=== PATIENT | female | born 1985 | race Caucasian/White ===

== ENCOUNTER 2023-06-26 14:53 | Observation (INO) ==
[2023-06-26] MEDS ORDERED: CATAPRES TAB 0.2 MG ONE (15:39)
[2023-06-26] MEDS: CATAPRES TAB 0.2 MG PO ONE (15:43)
--- NOTE | 2023-06-26 16:25 | RAD ---
EXAM: ABDOMEN X-RAY (or KUB)HISTORY: Nausea and vomiting.TECHNIQUE: Supine viewCOMPARISON: None.FINDINGS:The bowel gas pattern is nonspecific and nonobstructive. There is no gross organomegaly, free intraperitoneal air, or suspicious calcifications seen. There are multiple bilateral pelvic calcifications, left greater than right, consistent with phleboliths, but cannot rule out urolithiasis in the appropriate clinical setting. Clinical correlation is advised. The visualized bony structures are within normal limits.IMPRESSION:1. Nonspecific and nonobstructive bowel gas pattern.2. Multiple bilateral pelvic calcifications, left greater than right, consistent with phleboliths, but cannot rule out urolithiasis in the appropriate clinical setting. Clinical correlation is advised.3. Consider follow-up evaluation with CT if symptoms persist or worsen.THIS IS AN ELECTRONICALLY VERIFIED FINAL REPORT06/26/2023 4:22 PM - Electronically signed by Ellen Clinton
[2023-06-26 16:29] LABS: BASOPHILS # (AUTO) 0.1 X10^3/uL (0.0-0.1); BASOPHILS % (AUTO) 0.5 % (0.2-1.0); EOSINOPHILS % (AUTO) 0.1 % (0.9-2.9); HEMATOCRIT 40.5 % (36.0-47.0); HEMOGLOBIN 13.5 g/dL (12.0-16.0); LYMPHOCYTES % (AUTO) 12.1 % (21.0-51.0); MEAN CORPUSCULAR HEMOGLOBIN 29.8 pg (27.0-34.0); MEAN CORPUSCULAR HGB CONC 33.4 g/dL (33.0-35.0); MEAN PLATELET VOLUME 7.6 fL (7.4-11.0); MONOCYTES # (AUTO) 0.6 x10^3/uL (0.3-0.8); MONOCYTES % (AUTO) 3.5 % (0.0-13.0); NEUTROPHILS # (AUTO) 13.8 x10^3/uL (2.2-4.8); NEUTROPHILS % (AUTO) 83.8 % (42.0-75.0); PLATELET COUNT 369 X10^3/uL (150.0-450.0); RED BLOOD COUNT 4.55 X10^6/uL (3.5-5.4); RED CELL DISTRIBUTION WIDTH 13.7 % (11.6-16.5); WHITE BLOOD COUNT 16.4 X10^3/uL (3.6-10.0)
[2023-06-26 16:30] LABS: BILIRUBIN,URINE NEGATIVE (NEGATIVE); BLOOD/HEMOGLOBIN,URINE 1+ (NEGATIVE); GLUCOSE, URINE NEGATIVE (NEGATIVE); KETONES,URINE 3+ (NEGATIVE); LEUKOCYTE ESTERASE ,URINE NEGATIVE (NEGATIVE); NITRITES,URINE NEGATIVE (NEGATIVE); PROTEIN,URINE NEGATIVE (NEGATIVE); UROBILINOGEN,URINE NORMAL (NORMAL)
[2023-06-26 16:33] LABS: APPEARANCE,URINE CLEAR (CLEAR); COLOR,URINE YELLOW (YELLOW)
[2023-06-26 16:39] LABS: ALANINE AMINOTRANSFERASE 18 Units/L (12-78); ALBUMIN 3.7 g/dL (3.4-5.0); ALKALINE PHOSPHATASE 43 Units/L (46-116); ASPARTATE AMINO TRANSFERASE 10 Units/L (15-37); BLOOD UREA NITROGEN 8 mg/dL (7-18); CALCIUM 8.5 mg/dL (8.5-10.1); CARBON DIOXIDE 22.9 mmol/L (21-32); CHLORIDE 104 mmol/L (98-107); CREATININE 0.75 mg/dL (0.55-1.02); GLUCOSE 109 mg/dL (65-99); POTASSIUM 3.6 mmol/L (3.5-5.1); SODIUM 143 mmol/L (136-145); TOTAL PROTEIN 7.3 g/dL (6.4-8.2); eGFR NON BLACK RACES > 60 (>60)
[2023-06-26 16:42] LABS: BACTERIA,URINE NEGATIVE /HPF (NEGATIVE); SQUAMOUS EPITHELIAL CELL,UR FEW /HPF (NEGATIVE)
[2023-06-26] MEDS ORDERED: PHENERGAN INJ 25 MG IM ONE (17:08)
[2023-06-26] MEDS: PHENERGAN INJ 25 MG IM ONE (17:17)
[2023-06-26] MEDS: NS 100 ML IV 100 ML ONE (17:48)
[2023-06-26] MEDS: OMNIPAQUE 350 mg/mL 100 mL BTL 100 ML ONE (17:48)
--- NOTE | 2023-06-26 17:56 | CT ---
EXAM: CT ABDOMEN AND PELVIS WITH INTRAVENOUS CONTRAST HISTORY: Abdominal pain. Vomiting. TECHNIQUE: Spiral axial CT images are obtained through the abdomen and pelvis without the administrat ion of oral contrast and with the administration of intravenous contrast. Additional coronal and sagi ttal reformatted images are reconstructed. DOSIMETRY: Total DLP 389.65 mGycm; CTDI 7.82 mGy COMPARISON: None available. FINDINGS: GASTROINTESTINAL TRACT: Mild thickening of the visualized distal esophagus which may represent postin flammatory change or reflux esophagitis in the appropriate clinical setting. There is no evidence for bowel herniation, bowel obstruction, colitis or diverticulitis. A normal-jennifer earing appendix is seen. GENITOURINARY SYSTEM: The kidneys are unremarkable. There is no ureteral calculus or stigmata of obst ructive uropathy. The urinary bladder is grossly unremarkable for a non-dedicated exam. REPRODUCTIVE SYSTEM: There is an approximately 1.9 cm right ovarian cyst, presumed to represent a fun ctional cyst in this age category. Axial image 66; coronal image 47. Consider correlation with a fo llowup ultrasound for further characterization as clinically warranted. The uterus and left adnexa a ppear grossly unremarkable for a CT scan. BILIARY SYSTEM: Dilated gallbladder with questionable gallbladder wall thickening; nonspecific findin g which may represent sequela of NPO status. Consider follow-up evaluation with HIDA scan to rule out cystic duct obstruction and acute cholecystitis as clinically warranted. CT ABDOMEN: The liver, spleen, pancreas, adrenal glands, aorta, and inferior vena cava are within nor mal limits for a CT scan. There is no intra-abdominal or retroperitoneal lymphadenopathy, free fluid , or free air seen. No abdominal herniation is noted. CT PELVIS: No pelvic sidewall or inguinal lymphadenopathy is seen. No inguinal herniation is noted. No free fluid or free air is seen. BONES AND JOINTS: The visualized bony structures are within normal limits. LUNG BASES: The lung bases are clear. IMPRESSION: 1. Dilated gallbladder with questionable gallbladder wall thickening; nonspecific finding which may represent sequela of NPO status, but cannot rule out acute cholecystitis in the appropriate clinical setting. Axial image 22-30 consider follow-up evaluation with HIDA scan to rule out cystic duct obst ruction and acute cholecystitis as clinically warranted. 2. No evidence for pyelonephritis, renal stone disease or obstructive uropathy. 3. Mild thickening of the visualized distal esophagus which may represent postinflammatory change or reflux esophagitis in the appropriate clinical setting. 4. No evidence for acute appendicitis, bowel herniation/obstruction, colitis or diverticulitis seen. 5. Approximately 1.9 cm right ovarian cyst, presumed to represent a functional cyst in this age nicholas keen. Axial image 66; coronal image 47. Consider correlation with a followup ultrasound for further characterization as clinically warranted. 6. No free fluid, free air, mass lesions, or lymphadenopathy seen. THIS IS AN ELECTRONICALLY VERIFIED FINAL REPORT 06/26/2023 5:52 PM - Electronically signed by Ellen Clinton
--- NOTE | 2023-06-26 19:15 | DR.NAUSEAF ---
HPI Time Seen Time Seen by Provider: 06/26/23 16:00 Primary Care Physician Primary Care Physician: [facility] Complaints Chief Complaint:: Patient states that she started vomiting Tuesday06.24.2023 and thought that it was starting to get better. However this morning she woke up and was vomiting again and is unable to keep anything down. COVID-19 Coronavirus risk:travel/contact w/high risk person: No Has patient experienced Coronavirus symptoms: No Source History Provided: Patient Mode of Arrival Mode of Arrival: Ambulatory Timing Onset of Chief Complaint: 06/24/23 Context Onset: Spontaneous Recent: None : No Quality Quality: Bilious Associated Signs and Symptoms Abdominal Pain Quality: Cramping Abdominal Pain Location: Diffuse PMH PMH Past Medical History: No Past Medical History: Hypertension Past Surgical History: Yes Surgical History: and Other Past Surgical History Comment: D&C Family History History of Family Medical Conditions: Yes Family Medical History: Diabetes Mellitus, Cancer, [place], Coronary Artery Disease and Hypertension Social History Type of Tobacco Use: Cigarettes Do you use any recreational Drugs:: No Travel Risk Coronavirus risk:travel/contact w/high risk person: No Has patient experienced Coronavirus symptoms: No Infectious screening Have you traveled outside the country in the last 6 months?: No Isolation: Standard ROS Review of Systems Gastrointestinal/Abdominal: See HPI, Abdominal Pain and Nausea PE Vital Signs Vitals: Vital Signs Temperature 97.7 F Temperature 97.7 F Pulse Rate [Left Brachial] 73 Pulse Rate 74 Pulse Rate 71 Pulse Rate 70 Pulse Rate 73 Pulse Rate 70 Pulse Rate 91 Pulse Rate 74 Pulse Rate 71 Pulse Rate 70 Pulse Rate 73 Respiratory Rate 18 Respiratory Rate 18 Blood Pressure [Left Arm] 200/95 Blood Pressure 180/102 Blood Pressure 164/94 Blood Pressure 209/99 Blood Pressure 181/96 Blood Pressure 226/111 Blood Pressure 200/95 O2 Sat by Pulse Oximetry 98 O2 Sat by Pulse Oximetry 99 O2 Sat by Pulse Oximetry 98 O2 Sat by Pulse Oximetry 99 O2 Sat by Pulse Oximetry 99 O2 Sat by Pulse Oximetry 99 O2 Sat by Pulse Oximetry 100 O2 Sat by Pulse Oximetry 100 O2 Sat by Pulse Oximetry 98 O2 Sat by Pulse Oximetry 100 O2 Sat by Pulse Oximetry 99 O2 Sat by Pulse Oximetry 99 General Limitations: No Limitations General Appearance: Alert and In No Apparent Distress Head Head Exam: Normal Inspection, Atraumatic and Normocephalic Eyes Eye exam: Normal Appearance, PERRL and EOMI ENT ENT Exam: Normal Exam Neck Neck Exam: Normal Inspection Chest Chest Inspection: Normal Inspection Respiratory Respiratory Exam: Normal Lung Sounds Bilat Cardiovascular Cardiovascular Exam: Regular Rate Abdominal Exam Abdominal Exam: Normal Inspection, Normal Bowel Sounds and Soft Rectal Rectal Exam: Deferred (Patient declined rectal exam) Extremities Extremities Exam: Normal Inspection Back Back Exam: Normal Inspection Neurologic Neurological Exam: Alert, Oriented X3, CN II-XII Intact, Normal Gait and Reflexes Normal Psychiatric Psychiatric Exam: Normal Affect and Normal Mood Skin Skin Exam: Warm, Dry and Intact COURSE Treatment Treatment: Labs, CT, Phenergan, IV antibiotics Reevaluation 1st: Improved ROR Labs Reviewed Laboratory Results Reviewed?: Yes 06/26/23 16:21 06/26/23 16:21 Laboratory: WBC 16.4 X10^3/uL (3.6-10.0) H 06/26/23 16:21 RBC 4.55 X10^6/uL (3.5-5.4) 06/26/23 16:21 Hgb 13.5 g/dL (12.0-16.0) 06/26/23 16:21 Hct 40.5 % (36.0-47.0) 06/26/23 16:21 MCV 89.0 fL (80.0-100.0) 06/26/23 16:21 MCH 29.8 pg (27.0-34.0) 06/26/23 16:21 MCHC 33.4 g/dL (33.0-35.0) 06/26/23 16:21 RDW 13.7 % (11.6-16.5) 06/26/23 16:21 Plt Count 369 X10^3/uL (150.0-450.0) 06/26/23 16:21 MPV 7.6 fL (7.4-11.0) 06/26/23 16:21 Neut % (Auto) 83.8 % (42.0-75.0) H 06/26/23 16:21 Lymph % (Auto) 12.1 % (21.0-51.0) L 06/26/23 16:21 Power % (Auto) 3.5 % (0.0-13.0) 06/26/23 16:21 Eos % (Auto) 0.1 % (0.9-2.9) L 06/26/23 16:21 Baso % (Auto) 0.5 % (0.2-1.0) 06/26/23 16:21 Neut # (Auto) 13.8 x10^3/uL (2.2-4.8) H 06/26/23 16:21 Lymph # (Auto) 2.0 X10^3/uL (1.3-2.9) 06/26/23 16:21 Power # (Auto) 0.6 x10^3/uL (0.3-0.8) 06/26/23 16:21 Eos # (Auto) 0.0 x10^3/uL (0.0-0.2) 06/26/23 16:21 Baso # (Auto) 0.1 X10^3/uL (0.0-0.1) 06/26/23 16:21 Absolute Nucleated RBC 0.0 /100WBC 06/26/23 16:21 Sodium 143 mmol/L (136-145) 06/26/23 16:21 Corrected Sodium TNP 06/26/23 16:21 Potassium 3.6 mmol/L (3.5-5.1) 06/26/23 16:21 Chloride 104 mmol/L (98-107) 06/26/23 16:21 Carbon Dioxide 22.9 mmol/L (21-32) 06/26/23 16:21 BUN 8 mg/dL (7-18) 06/26/23 16:21 Creatinine 0.75 mg/dL (0.55-1.02) 06/26/23 16:21 Est GFR (MDRD) Af Amer > 60 (>60) 06/26/23 16:21 Est GFR (MDRD) Non-Af > 60 (>60) 06/26/23 16:21 Glucose 109 mg/dL (65-99) H 06/26/23 16:21 Calcium 8.5 mg/dL (8.5-10.1) 06/26/23 16:21 Corrected Calcium TNP 06/26/23 16:21 Total Bilirubin 0.40 mg/dL (0.2-1.0) 06/26/23 16:21 AST 10 Units/L (15-37) L 06/26/23 16:21 ALT 18 Units/L (12-78) 06/26/23 16:21 Alkaline Phosphatase 43 Units/L (46-116) L 06/26/23 16:21 Total Protein 7.3 g/dL (6.4-8.2) 06/26/23 16:21 Albumin 3.7 g/dL (3.4-5.0) 06/26/23 16: Globulin 3.6 g/dL (2.5-4.5) 06/26/23 16: Albumin/Globulin Ratio 1.0 Ratio (1.1-2.1) L 06/26/23 16:21 Specimen Type Clean catch urine 06/26/23 16: Urine Color Yellow (YELLOW) 06/26/23 16: Urine Appearance Clear (CLEAR) 06/26/23 16: Urine pH 8.0 (5.0 - 8.0) 06/26/23 16: Ur Specific [place] 1.015 (1.000-1.030) 06/26/23 16: Urine Protein Negative (NEGATIVE) 06/26/23 16: Urine Glucose (UA) Negative (NEGATIVE) 06/26/23 16: Urine Ketones 3+ (NEGATIVE) 06/26/23 16: Urine Blood 1+ (NEGATIVE) 06/26/23 16: Urine Nitrite Negative (NEGATIVE) 06/26/23 16: Urine Bilirubin Negative (NEGATIVE) 06/26/23 16: Urine Urobilinogen Normal (NORMAL) 06/26/23 16: Ur Leukocyte Esterase Negative (NEGATIVE) 06/26/23 16: Urine RBC 3-5 /HPF (0-3) A 06/26/23 16: Urine WBC 0-2 /HPF (0-5) 06/26/23 16: Ur Squamous Epith Cells Few /HPF (NEGATIVE) 06/26/23 16: Urine Bacteria Negative /HPF (NEGATIVE) 06/26/23 16: Ur Culture Indicated? No/not indicated 06/26/23 16: Urine Test Negative <10 mIU/mL 06/26/23 16: Urine Opiates Screen Negative (NEG=<300) 06/26/23 16: Urine Methadone Screen Negative (NEG=<300) 06/26/23 16: Ur Barbiturates Screen Negative (NEG=<200) 06/26/23 16:26 Ur Phencyclidine Scrn Negative (NEG=<25) 06/26/23 16:26 Ur Amphetamines Screen Negative (NEG=<1000) 06/26/23 16:26 U Benzodiazepines Scrn Negative (NEG=<200) 06/26/23 16:26 Urine Cocaine Screen Negative (NEG=<300) 06/26/23 16:26 U Marijuana (THC) Screen Positive (NEG=<50) A 06/26/23 16:26 XRAY XRAY Interpreted by: Radiologist Opioid Opioid Risk Tool Age (Wing box if 16-45): No History of Preadolescent Sexual Abuse: No Total: 0 Total Score Risk Category: Low Risk Copyright: Shaun PHILLIPS predicting aberrant behaviors Discharge Plan Diagnosis Discharge Problem: Cholecystitis, Nausea and vomiting in adult patient Discharge Plan Patient Disposition: 09 ADMITTED INPATIENT Condition: Stable Prescriptions: No [facility] Concerns: Post Hospitalization: new medications and changes needed to prevent readmission or further decline. Pt educated and given instructions on all concerns. Plan of Treatment: Continue with present treatment and follow up plan. Pt is to keep follow up appointment as instructed and take medications as ordered. Follow ups/Referrals Follow ups/Referrals: ,Misc [Primary Care Provider] - 3 days
[2023-06-26] MEDS ORDERED: NS 100 ML IV 100 ML ONE (19:18)
[2023-06-26] MEDS ORDERED: ZOSYN VIAL 4.5 GRAMS IV ONE (19:18)
[2023-06-26] MEDS: ZOSYN VIAL 4.5 GRAMS 4.5 G in NS 100 ML IV 100 ML IV SCH (19:25)
[2023-06-26] MEDS ORDERED: NS 1,000 ML IV 1,000 ML IV SCH (20:00)
[2023-06-26] MEDS ORDERED: CONSULT PHARMACY - POTASSIUM & MAGNESIUM XX SCH (20:00)
[2023-06-26 20:48] VITALS: BMI 34.7
[2023-06-26] MEDS: NS 1,000 ML IV 1,000 ML IV SCH (20:49)
[2023-06-26] MEDS ORDERED: ZOFRAN INJ 4 MG VIAL IVP PRN (20:59)
[2023-06-26] MEDS ORDERED: MORPHINE SULFATE INJ 4 MG IVP PRN (20:59)
[2023-06-26] MEDS: MAGNESIUM SULFATE 1 GRAM/100 mL PREMIX 1 G/100 ML BAG IV SCH (22:30)
[2023-06-26] MEDS ORDERED: K-DUR TAB 20 MEQ PO SCH (23:00)
[2023-06-26] MEDS ORDERED: MAG-OX TAB PO SCH (23:00)
[2023-06-26] MEDS: K-RIDER 10 MEQ/100 ML WATER 10 MEQ/100 ML BAG IV SCH (23:00)
[2023-06-26] MEDS: NS 500 ML IV 500 ML IV ONE (23:18)
[2023-06-27] MEDS: K-RIDER 10 MEQ/100 ML WATER 10 MEQ/100 ML BAG IV SCH (03:18)
[2023-06-27 06:15] LABS: BASOPHILS # (AUTO) 0.1 X10^3/uL (0.0-0.1); BASOPHILS % (AUTO) 0.6 % (0.2-1.0); EOSINOPHILS # (AUTO) 0.2 x10^3/uL (0.0-0.2); EOSINOPHILS % (AUTO) 2.2 % (0.9-2.9); HEMATOCRIT 36.5 % (36.0-47.0); HEMOGLOBIN 12.3 g/dL (12.0-16.0); LYMPHOCYTES % (AUTO) 39.5 % (21.0-51.0); MEAN CORPUSCULAR HEMOGLOBIN 30.2 pg (27.0-34.0); MEAN CORPUSCULAR HGB CONC 33.7 g/dL (33.0-35.0); MEAN CORPUSCULAR VOLUME 89.4 fL (80.0-100.0); MEAN PLATELET VOLUME 7.8 fL (7.4-11.0); MONOCYTES # (AUTO) 0.6 x10^3/uL (0.3-0.8); MONOCYTES % (AUTO) 5.9 % (0.0-13.0); NEUTROPHILS # (AUTO) 5.3 x10^3/uL (2.2-4.8); NEUTROPHILS % (AUTO) 51.8 % (42.0-75.0); PLATELET COUNT 269 X10^3/uL (150.0-450.0); RED BLOOD COUNT 4.08 X10^6/uL (3.5-5.4); RED CELL DISTRIBUTION WIDTH 13.6 % (11.6-16.5); WHITE BLOOD COUNT 10.2 X10^3/uL (3.6-10.0)
[2023-06-27 06:31] LABS: ALANINE AMINOTRANSFERASE 15 Units/L (12-78); ALKALINE PHOSPHATASE 34 Units/L (46-116); ASPARTATE AMINO TRANSFERASE 10 Units/L (15-37); BLOOD UREA NITROGEN 6 mg/dL (7-18); CALCIUM 8.1 mg/dL (8.5-10.1); CARBON DIOXIDE 24.9 mmol/L (21-32); CHLORIDE 107 mmol/L (98-107); COR CA(FOR HYPOALB) 8.9 mg/dL (8.5-10.1); CREATININE 0.62 mg/dL (0.55-1.02); GLUCOSE 84 mg/dL (65-99); POTASSIUM 3.3 mmol/L (3.5-5.1); SODIUM 143 mmol/L (136-145); TOTAL PROTEIN 6.1 g/dL (6.4-8.2); eGFR NON BLACK RACES > 60 (>60)
[2023-06-27] MEDS ORDERED: CONSULT PHARMACY - POTASSIUM & MAGNESIUM XX SCH (07:00)
[2023-06-27] MEDS: NS + KCL 20 MEQ/L 1,000 ML IV SCH (08:10)
[2023-06-27 08:38] VITALS: RESP 18
[2023-06-27] MEDS ORDERED: K-DUR TAB 20 MEQ PO SCH (09:00)
--- NOTE | 2023-06-27 10:07 | DR.H&P ---
H&P History & Physical for Day of: H&P Date: 06/27/23 Chief Complaint Chief Complaint: abdominal pain Allergies Allergies Allergy/AdvReac Type Severity Reaction Status Date / Time No Known Allergies Allergy Verified 04/09/23 11:09 History of Present Illness History of Present Illness: Ms Vázquez is a 38y/o female with no pertinent medical hx presented with worsening abdominal pain associated with nausea and vomiting. Patient states her symptoms started 2 days ago. She states she has had similar symptoms in the past but did not have any work-up done. She reports epigastric and RUQ pain. She also reports having a BM with slimy stool. She has not had any vomiting episodes overnight. She is currently afebrile. ER work up showed CTAP concerning for possible acute cholecystitis. Advised further imaging with HIDA. Dr Gonzalez was consulted. She reports improvement in abdominal pain and her other symptoms. She is currently NPO. She was started on IV fluids, pain medicine and Zosyn. Labs/imaging reviewed - WBC 10.2 Hgb 12.3 K:3.3 Ma.6 -CTAP reviewed Plan: Admit to med surg for further management. Continue NPO status, IV fluids and pain control. Continue Zosyn. Continue anti-emetics. Will order HIDA scan. Follow surgery recommendations. Replace electrolytes prn. Will order stool studies. Monitor AM labs/imaging. Past Medical History Past Medical History: Hypertension Past Surgical History Surgical History: and [employer] Surgery Family History Family Medical History: Diabetes Mellitus, Cancer, [place] and Hypertension Social History Does patient currently use any type of tobacco product: Yes Have you used tobacco products in the last 12 months: Yes Type of Tobacco Use: Cigarettes How many years tobacco product used: 23 Does any household member use tobacco: Yes Alcohol Use: None Drug Use: Marijuana Medications Home Medications: Home Medications Medication Instructions Recorded Confirmed Type NK 04/09/23 06/26/23 History Labs 06/27/23 05:39 06/27/23 05:39 Labs: Laboratory WBC 10.2 X10^3/uL (3.6-10.0) H 06/27/23 05:39 RBC 4.08 X10^6/uL (3.5-5.4) 06/27/23 05:39 Hgb 12.3 g/dL (12.0-16.0) 06/27/23 05:39 Hct 36.5 % (36.0-47.0) 06/27/23 05:39 MCV 89.4 fL (80.0-100.0) 06/27/23 05:39 MCH 30.2 pg (27.0-34.0) 06/27/23 05:39 MCHC 33.7 g/dL (33.0-35.0) 06/27/23 05:39 RDW 13.6 % (11.6-16.5) 06/27/23 05:39 Plt Count 269 X10^3/uL (150.0-450.0) 06/27/23 05:39 MPV 7.8 fL (7.4-11.0) 06/27/23 05:39 Neut % (Auto) 51.8 % (42.0-75.0) 06/27/23 05:39 Lymph % (Auto) 39.5 % (21.0-51.0) 06/27/23 05:39 [place] % (Auto) 5.9 % (0.0-13.0) 06/27/23 05:39 Eos % (Auto) 2.2 % (0.9-2.9) 06/27/23 05:39 Baso % (Auto) 0.6 % (0.2-1.0) 06/27/23 05:39 Neut # (Auto) 5.3 x10^3/uL (2.2-4.8) H 06/27/23 05:39 Lymph # (Auto) 4.0 X10^3/uL (1.3-2.9) H 06/27/23 05:39 [place] # (Auto) 0.6 x10^3/uL (0.3-0.8) 06/27/23 05:39 Eos # (Auto) 0.2 x10^3/uL (0.0-0.2) 06/27/23 05:39 Baso # (Auto) 0.1 X10^3/uL (0.0-0.1) 06/27/23 05:39 Absolute Nucleated RBC 0.1 /100WBC 06/27/23 05:39 Sodium 143 mmol/L (136-145) 06/27/23 05:39 Corrected Sodium TNP 06/27/23 05:39 Potassium 3.3 mmol/L (3.5-5.1) L 06/27/23 05:39 Chloride 107 mmol/L (98-107) 06/27/23 05:39 Carbon Dioxide 24.9 mmol/L (21-32) 06/27/23 05:39 BUN 6 mg/dL (7-18) L 06/27/23 05:39 Creatinine 0.62 mg/dL (0.55-1.02) 06/27/23 05:39 Est GFR (MDRD) Af Amer > 60 (>60) 06/27/23 05:39 Est GFR (MDRD) Non-Af > 60 (>60) 06/27/23 05:39 Glucose 84 mg/dL (65-99) 06/27/23 05:39 Calcium 8.1 mg/dL (8.5-10.1) L 06/27/23 05:39 Corrected Calcium 8.9 mg/dL (8.5-10.1) 06/27/23 05:39 Magnesium 2.6 mg/dL (2.0-2.9) 06/27/23 05:39 Total Bilirubin 0.40 mg/dL (0.2-1.0) 06/27/23 05:39 AST 10 Units/L (15-37) L 06/27/23 05:39 ALT 15 Units/L (12-78) 06/27/23 05:39 Alkaline Phosphatase 34 Units/L (46-116) L 06/27/23 05:39 Total Protein 6.1 g/dL (6.4-8.2) L 06/27/23 05:39 Albumin 3.0 g/dL (3.4-5.0) L 06/27/23 05:39 Globulin 3.1 g/dL (2.5-4.5) 06/27/23 05:39 Albumin/Globulin Ratio 1.0 Ratio (1.1-2.1) L 06/27/23 05:39 Specimen Type Clean catch urine 06/26/23 16:26 Urine Color Yellow (YELLOW) 06/26/23 16:26 Urine Appearance Clear (CLEAR) 06/26/23 16:26 Urine pH 8.0 (5.0 - 8.0) 06/26/23 16:26 Ur Specific [place] 1.015 (1.000-1.030) 06/26/23 16: Urine Protein Negative (NEGATIVE) 06/26/23 16: Urine Glucose (UA) Negative (NEGATIVE) 06/26/23 16: Urine Ketones 3+ (NEGATIVE) 06/26/23 16: Urine Blood 1+ (NEGATIVE) 06/26/23 16: Urine Nitrite Negative (NEGATIVE) 06/26/23 16: Urine Bilirubin Negative (NEGATIVE) 06/26/23 16: Urine Urobilinogen Normal (NORMAL) 06/26/23 16:26 Ur Leukocyte Esterase Negative (NEGATIVE) 06/26/23 16: Urine RBC 3-5 /HPF (0-3) A 06/26/23 16: Urine WBC 0-2 /HPF (0-5) 06/26/23 16: Ur Squamous Epith Cells Few /HPF (NEGATIVE) 06/26/23 16: Urine Bacteria Negative /HPF (NEGATIVE) 06/26/23 16: Ur Culture Indicated? No/not indicated 06/26/23 16: Urine Test Negative <10 mIU/mL 06/26/23 16: Urine Opiates Screen Negative (NEG=<300) 06/26/23 16: Urine Methadone Screen Negative (NEG=<300) 06/26/23 16: Ur Barbiturates Screen Negative (NEG=<200) 06/26/23 16:26 Ur Phencyclidine Scrn Negative (NEG=<25) 06/26/23 16: Ur Amphetamines Screen Negative (NEG=<1000) 06/26/23 16: U Benzodiazepines Scrn Negative (NEG=<200) 06/26/23 16:26 Urine Cocaine Screen Negative (NEG=<300) 06/26/23 16: U Marijuana (THC) Screen Positive (NEG=<50) A 06/26/23 16:26 Review of Systems Constitutional: Malaise Eyes: No Symptoms Reported ENT: No Symptoms Reported Respiratory: No Symptoms Reported Cardiovascular: No Symptoms Reported Gastrointestinal: Nausea, Vomiting, Abdominal Pain and Diarrhea Musculoskeletal: No Symptoms Reported Skin: No Symptoms Reported Neurological: No Symptoms Reported Physical Exam Vital Signs: Vital Signs Temperature 97.3 F Temperature 98.0 F Pulse Rate [Left Brachial] 74 Pulse Rate [Left Brachial] 55 Respiratory Rate 18 Respiratory Rate 20 Blood Pressure [Right Arm] 128/64 Blood Pressure [Right Arm] 109/60 O2 Sat by Pulse Oximetry 99 O2 Sat by Pulse Oximetry 99 Oriented: Normal Eyes: Normal Nose: Normal Throat: Normal Respiratory: Clear Throughout Cardiovascular: Normal Auscultation: Bowel Sounds: Normal Tenderness: RUQ, Epigastric, Periumbilical and Mild Skin: Normal Musculoskeletal: Normal Psychiatric: Normal Mood Description: Calm Affect: Normal Speech Pattern: Clear and Appropriate Assessment/Plan (1) Cholecystitis: Status: Acute (2) Nausea and vomiting in adult patient: Status: Acute (3) Acute hypokalemia: Status: Acute (4) Hypomagnesemia: Status: Acute (5) Abdominal pain: Qualifiers: Abdominal location: right upper quadrant Qualified Code(s): R10.11 - Right upper quadrant pain Status: Acute (6) Reflux esophagitis: Qualifiers: Esophagitis bleeding: unspecified whether hemorrhage Qualified Code(s): K21.00 - Gastro-esophageal reflux disease with esophagitis, without bleeding Status: Acute Review H&P Reviewed: Yes Patient was examined?: Yes
[2023-06-27] MEDS: PEPCID 20 MG VIAL 20 MG in NS 50 ML IV 50 ML IV SCH (10:23)
[2023-06-27] MEDS: NS 1,000 ML IV 1,000 ML ONE (13:28)
[2023-06-27] MEDS: DIPRIVAN VIAL 20 ML ONE (13:34)
[2023-06-27] MEDS: XYLOCAINE 2 % (PLAIN) ONE (13:34)
[2023-06-27 15:29] VITALS: O2SAT 98
[2023-06-27 15:33] VITALS: TEMP 97.6
[2023-06-27 15:36] VITALS: BP 113/61; PULSE 59
[2023-06-27] MEDS ORDERED: PROTONIX INJ 40 MG VIAL IVP SCH (21:00)
--- NOTE | 2023-06-28 10:18 | DR.SSS ---
SHORT STAY SUMMARY Admission Date Date of Admission: 06/26/23 Discharge Date Discharge Date: 06/27/23 Admission Diagnoses Admission Diagnoses: Abdominal pain Nausea/Vomiting Discharge Diagnoses Discharge Diagnoses: Esophagitis Nausea/vomiting GERD Cholelithiasis Chief Complaint Chief Complaint: abdominal pain, nausea, vomiting History of Present Illness History of Present Illness: Ms Vázquez is a 38y/o female with no pertinent medical hx presented with worsening abdominal pain associated with nausea and vomiting. Patient states her symptoms started 2 days ago. She states she has had similar symptoms in the past but did not have any work-up done. She reports epigastric and RUQ pain. She also reports having a BM with slimy stool. She has not had any vomiting episodes overnight. She is currently afebrile. ER work up showed CTAP concerning for possible acute cholecystitis and esophagitis. Advised further imaging with HIDA. Dr Gonzalez was consulted. She was admitted for further management. She was kept NPO, started on fluids, pain control and anti-emetics. She was also started on Zosyn. 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 Allergies Allergies Allergy/AdvReac Type Severity Reaction Status Date / Time No Known Allergies Allergy Verified 04/09/23 11:09 Medications Home Medications: No Known Allergies Allergy (Verified 04/09/23 11:09) New Prescriptions pantoprazole 40 mg granules delayed-release for susp in packet (Protonix) 40 mg PO BID #60 ea 06/27/23 [Rx] sucralfate 1 gram tablet (Carafate) 1 g PO TID #60 tabs 06/27/23 [Rx] Family History Family Medical History: Diabetes Mellitus, Cancer, [place] and Hypertension Social History Does patient currently use any type of tobacco product: Yes Have you used tobacco products in the last 12 months: Yes Type of Tobacco Use: Cigarettes How many years tobacco product used: 23 Does any household member use tobacco: Yes Alcohol Use: None Drug Use: Marijuana Review of Systems Constitutional: No Symptoms Reported Eyes: No Symptoms Reported ENT: No Symptoms Reported Respiratory: No Symptoms Reported Cardiovascular: No Symptoms Reported Gastrointestinal: Vomiting and Abdominal Pain Genitourinary: No Symptoms Reported Musculoskeletal: No Symptoms Reported Skin: No Symptoms Reported Neurological: No Symptoms Reported Physical Exam Vital Signs: Last Vital Signs Temp 97.6 F 06/27/23 15:00 Pulse 59 L 06/27/23 15:00 Resp 18 06/27/23 15:00 BP 113/61 06/27/23 15:00 Pulse Ox 98 06/27/23 15:00 O2 Del Method Room Air 06/27/23 12:00 Oriented: Normal Eyes: Normal Ear: Normal Throat: Normal Respiratory: Clear Throughout Cardiovascular: Normal Auscultation: Bowel Sounds: Normal Tenderness: RUQ, Epigastric and Mild; negative Rebound, Guarding or Rigidity Skin: Normal Musculoskeletal: Normal Psychiatric: Normal Mood Description: Calm Affect: Normal Speech Pattern: Clear and Appropriate Labs Labs: Laboratory Last Values WBC 10.2 X10^3/uL (3.6-10.0) H 06/27/23 05:39 RBC 4.08 X10^6/uL (3.5-5.4) 06/27/23 05:39 Hgb 12.3 g/dL (12.0-16.0) 06/27/23 05:39 Hct 36.5 % (36.0-47.0) 06/27/23 05:39 MCV 89.4 fL (80.0-100.0) 06/27/23 05:39 MCH 30.2 pg (27.0-34.0) 06/27/23 05:39 MCHC 33.7 g/dL (33.0-35.0) 06/27/23 05:39 RDW 13.6 % (11.6-16.5) 06/27/23 05:39 Plt Count 269 X10^3/uL (150.0-450.0) 06/27/23 05:39 MPV 7.8 fL (7.4-11.0) 06/27/23 05:39 Neut % (Auto) 51.8 % (42.0-75.0) 06/27/23 05:39 Lymph % (Auto) 39.5 % (21.0-51.0) 06/27/23 05:39 [place] % (Auto) 5.9 % (0.0-13.0) 06/27/23 05:39 Eos % (Auto) 2.2 % (0.9-2.9) 06/27/23 05:39 Baso % (Auto) 0.6 % (0.2-1.0) 06/27/23 05:39 Neut # (Auto) 5.3 x10^3/uL (2.2-4.8) H 06/27/23 05:39 Lymph # (Auto) 4.0 X10^3/uL (1.3-2.9) H 06/27/23 05:39 [place] # (Auto) 0.6 x10^3/uL (0.3-0.8) 06/27/23 05:39 Eos # (Auto) 0.2 x10^3/uL (0.0-0.2) 06/27/23 05:39 Baso # (Auto) 0.1 X10^3/uL (0.0-0.1) 06/27/23 05:39 Absolute Nucleated RBC 0.1 /100WBC 06/27/23 05:39 Sodium 143 mmol/L (136-145) 06/27/23 05:39 Corrected Sodium TNP 06/27/23 05:39 Potassium 3.3 mmol/L (3.5-5.1) L 06/27/23 05:39 Chloride 107 mmol/L (98-107) 06/27/23 05:39 Carbon Dioxide 24.9 mmol/L (21-32) 06/27/23 05:39 BUN 6 mg/dL (7-18) L 06/27/23 05:39 Creatinine 0.62 mg/dL (0.55-1.02) 06/27/23 05:39 Est GFR (MDRD) Af Amer > 60 (>60) 06/27/23 05:39 Est GFR (MDRD) Non-Af > 60 (>60) 06/27/23 05:39 Glucose 84 mg/dL (65-99) 06/27/23 05:39 Calcium 8.1 mg/dL (8.5-10.1) L 06/27/23 05:39 Corrected Calcium 8.9 mg/dL (8.5-10.1) 06/27/23 05:39 Magnesium 2.6 mg/dL (2.0-2.9) 06/27/23 05:39 Total Bilirubin 0.40 mg/dL (0.2-1.0) 06/27/23 05:39 AST 10 Units/L (15-37) L 06/27/23 05:39 ALT 15 Units/L (12-78) 06/27/23 05:39 Alkaline Phosphatase 34 Units/L (46-116) L 06/27/23 05:39 Total Protein 6.1 g/dL (6.4-8.2) L 06/27/23 05:39 Albumin 3.0 g/dL (3.4-5.0) L 06/27/23 05:39 Globulin 3.1 g/dL (2.5-4.5) 06/27/23 05:39 Albumin/Globulin Ratio 1.0 Ratio (1.1-2.1) L 06/27/23 05:39 Specimen Type Clean catch urine 06/26/23 16:26 Urine Color Yellow (YELLOW) 06/26/23 16: Urine Appearance Clear (CLEAR) 06/26/23 16:26 Urine pH 8.0 (5.0 - 8.0) 06/26/23 16:26 Ur Specific [place] 1.015 (1.000-1.030) 06/26/23 16:26 Urine Protein Negative (NEGATIVE) 06/26/23 16: Urine Glucose (UA) Negative (NEGATIVE) 06/26/23 16: Urine Ketones 3+ (NEGATIVE) 06/26/23 16: Urine Blood 1+ (NEGATIVE) 06/26/23 16: Urine Nitrite Negative (NEGATIVE) 06/26/23 16: Urine Bilirubin Negative (NEGATIVE) 06/26/23 16: Urine Urobilinogen Normal (NORMAL) 06/26/23 16:26 Ur Leukocyte Esterase Negative (NEGATIVE) 06/26/23 16: Urine RBC 3-5 /HPF (0-3) A 06/26/23 16:26 Urine WBC 0-2 /HPF (0-5) 06/26/23 16:26 Ur Squamous Epith Cells Few /HPF (NEGATIVE) 06/26/23 16: Urine Bacteria Negative /HPF (NEGATIVE) 06/26/23 16: Ur Culture Indicated? No/not indicated 06/26/23 16: Urine Test Negative <10 mIU/mL 06/26/23 16: Urine Opiates Screen Negative (NEG=<300) 06/26/23 16: Urine Methadone Screen Negative (NEG=<300) 06/26/23 16: Ur Barbiturates Screen Negative (NEG=<200) 06/26/23 16:26 Ur Phencyclidine Scrn Negative (NEG=<25) 06/26/23 16:26 Ur Amphetamines Screen Negative (NEG=<1000) 06/26/23 16:26 U Benzodiazepines Scrn Negative (NEG=<200) 06/26/23 16:26 Urine Cocaine Screen Negative (NEG=<300) 06/26/23 16:26 U Marijuana (THC) Screen Positive (NEG=<50) A 06/26/23 16:26 Assessment/Plan (1) Cholecystitis: (2) Nausea and vomiting in adult patient: (3) Acute hypokalemia: (4) Hypomagnesemia: (5) Abdominal pain: (6) Reflux esophagitis: Hospital Course Hospital Course: Patient was started on IV fluids, pain control and anti-emetics. She was also started on Zosyn. Dr Gonzalez was consulted and did not recommend any further intervention inpatient. She was started on protonix and carafate for severe GERD. She will need outpatient EGD. She will f/u with Dr Gonzalez in the office. She was stable for discharge and will f/u with PCP as scheduled. Discharge Medications Discharge Medications: Home Medication List pantoprazole 40 mg granules delayed-release for susp in packet (Protonix) 40 mg PO BID #60 ea 06/27/23 [Rx] sucralfate 1 gram tablet (Carafate) 1 g PO TID #60 tabs 06/27/23 [Rx] Prescriptions: pantoprazole [Protonix] CODY RANDALL sucralfate [Carafate] CODY RANDALL Discharge Disposition Discharge Disposition: Home Discharge Plan Discharge Plan Patient Disposition: HOME, SELF-CARE Condition: Stable Health Concerns: Post Hospitalization: new medications and changes needed to prevent readmission or further decline. Pt educated and given instructions on all concerns. Care Plan Goals: Problem: Pain/Alteration in Comfort Goal: Improve/ Resolve Pain; Achieve Pain Tolerance Instructions: Take pain medications as prescribed. Contact your primary care provider if your pain is unrelieved or worsens. Follow up with primary care provider as directed. Plan of Treatment: Continue with present treatment and follow up plan. Pt is to keep follow up appointment as instructed and take medications as ordered. Prescriptions: New pantoprazole [Protonix] [address] For Susp In Packet 40 mg PO BID Qty: 60 0RF sucralfate [Carafate] 1 gram Tablet 1 g PO TID Qty: 60 0RF Orders to Discharge Patient Discharge Orders: Discharge (Routine); Ordered 06/27/23 Ordered By: Rebecca Frederick Follow ups/Referrals Follow ups/Referrals: CODY RANDALL [STAFF PHYSICIAN] - 07/12/23 9:00 am Instructions Instructions: Managing the Challenge of Quitting Smoking, Heartburn, Easy-to- Read, Food Choices for Gastroesophageal Reflux Disease, Adult, Upper Endoscopy, Care After Stand Alone Forms: Excuse From Work or School, Post Hospital Follow Up Care
== END 2023-06-27 15:45 | disposition home or self-care (01) ==
LOC: ER 14:53 → MED/SURG 14:53
PROVIDERS: ADMIT Internal Medicine; ATTEND Internal Medicine